=== PATIENT | female | born 1985 | race Caucasian/White ===

== ENCOUNTER 2017-08-31 08:29 | Emergency (ER) | payer SELFPAY ==
[2017-08-31 08:42] VITALS: BP 138/82
--- NOTE | 2017-08-31 09:29 | UC ---
Respiratory Complaint HPI - HPI Summary HPI Summary: 32 Y/O female with compliant of sore throat, fever, nasal congestion , sinus pain and pressure, and L ear pain x 2 days. Vomiting began this AM. Significant history of type 2 diabetes, blood glucose this AM 135. Patient does not know the name of insulin - states is taking one long acting insulin. Medications and medical history reviewed at this visit. Discussed with pt elevated HTN without history of HTN, states is normally withing recommended range. Elevation most likely due to current illness - History of Current Complaint Chief Complaint: UCRespiratory Stated Complaint: THROAT PAIN Time Seen by Provider: 08/31/17 08:54 Hx Obtained From: Patient Hx Last Menstrual Period: 08/24/17 Onset/Duration: Gradual Onset, Lasting Days Timing: Constant Severity Initially: Mild Severity Currently: Moderate Pain Intensity: 5 Pain Scale Used: 0-10 Numeric Character: Cough: Productive Aggravating Factors: Nothing Alleviating Factors: Nothing Associated Signs And Symptoms: Positive: Fever, Chills Related History: Seasonal Allergies - Risk Factors Pulmonary Embolism Risk Factors: Smoking Cardiac Risk Factors: Diabetes Pseudomonas Risk Factors: Negative Tuberculosis Risk Factors: Diabetes, Smoking - Allergies/Home Medications Allergies/Adverse Reactions: Allergies Allergy/AdvReac Type Severity Reaction Status Date / Time Baclofen Allergy Hives Verified 08/31/17 08:39 Garlic Allergy throat Verified 08/31/17 08:39 swelling Sulfamethoxazole Allergy Hives Verified 08/31/17 08:39 w/Trimethoprim [From Bactrim] Home Medications: Home Medications Topiramate [Trokendi Xr] 100 mg PO DAILY 08/31/17 [History Confirmed 08/31/17] Venlafaxine ER (NF) [Effexor ER (NF)] 150 mg PO DAILY 08/31/17 [History Confirmed 08/31/17] Venlafaxine EXT RELEASE CAP* [Effexor Xr CAP*] 75 mg PO DAILY 08/31/17 [History Confirmed 08/31/17] PMH/Surg Hx/FS Hx/Imm Hx Previously Healthy: Yes Endocrine History: Diabetes - Type 2 - Surgical History Surgical History: Yes Surgery Procedure, Year, and Place: TONSILECTOMY - 1987. FATTY LIPOMAS REMOVED - 2010. ABSCESS REMOVED( TUNNELED AREAS) BACK OF NECK. D &C - Family History Known Family History: Positive: Other - noncontributory - Social History Occupation: Employed Full-time Alcohol Use: Rare Substance Use Type: None Smoking Status (MU): Light Every Day Tobacco Smoker Amount Used/How Often: 1/4 to 102 ppd Household Exposure Type: Cigarettes Review of Systems Constitutional: Fever, Chills Skin: Negative Eyes: Negative ENT: Sore Throat, Ear Ache, Sinus Congestion Respiratory: Cough Cardiovascular: Negative Gastrointestinal: Vomiting Genitourinary: Negative Motor: Negative Neurovascular: Negative Musculoskeletal: Negative Neurological: Negative Psychological: Negative Is Patient Immunocompromised?: No All Other Systems Reviewed And Are Negative: Yes Physical Exam Triage Information Reviewed: Yes Appearance: Ill-Appearing - Actively vomiting Vital Signs: Initial Vital Signs Temp 98 F 08/31/17 08:39 Pulse 112 08/31/17 08:39 Resp 18 08/31/17 08:39 BP 138/82 08/31/17 08:39 Pulse Ox 100 08/31/17 08:39 Vital Signs Reviewed: Yes Eye Exam: Normal ENT Exam: Other ENT: Positive: TM red - Left side Neck exam: Normal Neck: Positive: Supple, Nontender Respiratory Exam: Normal Respiratory: Positive: Lungs clear Cardiovascular Exam: Normal Cardiovascular: Positive: RRR Abdominal Exam: Normal Abdomen Description: Positive: Nontender Bowel Sounds: Positive: Present Musculoskeletal Exam: Normal Musculoskeletal: Positive: Strength Intact Neurological Exam: Normal Neurological: Positive: Alert Psychological Exam: Normal Skin Exam: Normal UC Diagnostic Evaluation - Laboratory O2 Sat by Pulse Oximetry: 100 Respiratory Course/Dx - Differential Dx/Diagnosis Differential Diagnosis/HQI/PQRI: Influenza, Lower Resp Infection, Sinusitis, Other - Ear infection Provider Diagnoses: Ear infection / Sinus infection Discharge - Discharge Plan Condition: Stable Disposition: HOME Patient Education Materials: Sinusitis (ED), Otitis Media (ED) Additional Instructions: Please take antibiotics as directed. Your flu and strep tests were negative. Keep your follow up appointment with your primary medical provider. You may return to Urgent Care as needed for worsening symptoms.
[2017-08-31] MEDS ORDERED: Ondansetron ODT TAB* 4 MG PO ONE (09:38)
== END 2017-08-31 10:05 | disposition home or self-care (01) ==
LOC: UCEAST 08:29
DX: H66.90 Otitis media, unspecified, unspecified ear (principal); Z88.2 Allergy status to sulfonamides; F17.210 Nicotine dependence, cigarettes, uncomplicated; J32.9 Chronic sinusitis, unspecified
CPT/HCPCS: 87502; 87651; A9270-GY

== ENCOUNTER 2017-12-22 16:25 | Emergency (ER) | payer MEDICAID, OTHER ==
--- OUTSIDE RECORDS SUMMARY | 2017-12-22 16:45 | XMS REPORT ---
:1985 External Reference #:[id number] Author Organization [facility] Address [address] [address] Phone [phone] Care Team Providers Name Role Phone Jesi Paul NP Primary Care Physician Unavailable Payers Type Date Identification Numbers Payment Provider Subscriber Medicaid Policy Number: [id number] Medicaid Vy [employer]urg[employer] Name: 1 1 [address] PayID: [id number] [place] [address] Workers Compensation Onset: 2013 Policy Number: State Insurance yV Farrar [id number] [employer]ade [place]: [place] [address] [address] [place] [address] Problems Date Description Provider Status Onset: 09/14/2015 Lumbar spondylosis Valentin Peña M.D. 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 Active Family History Date Family Member(s) Problem(s) Comments General No Current Problems Social History Type Date Description Comments Occupation Unemployed Occupation Fulltime student ETOH Use Rarely consumes alcohol Smoking Patient is a current smoker, smokes every day Recreational Drug Use Denies Drug Use Smoking Light tobacco smoker (10 or fewer cigarettes/day) Allergies, Adverse Reactions, Alerts Date Description Reaction Status Severity Comments 09/14/2015 Bactrim Urticaria active Medications Medication Date Status Form Strength Qnty SIG Indications Ordering Provider Fluconazole 12/11/ Active Tablets 150mg 14tab 1 by K13.21 Oscar 2018 s mouth Ruparelia, every M.D. day Dicyclomine HCL / Active Tablets 20mg take 1 Unknown 0000 tablet by mouth four times a day Doxycycline / Active Tablets 100mg take 1 Unknown Hyclate 0000 tablet twice a day Levothyroxine / Active Tablets 50mcg 1 by Unknown Sodium 0000 mouth every day Metformin HCL / Active Tablets 1000mg 1 by Unknown 0000 mouth twice a day Simvastatin / Active Tablets 20mg take 1 Unknown 0000 tablet at bedtime Alprazolam / Active Tablets 0.5mg take 1 Unknown 0000 tablet twice a day if needed Gabapentin / Active Capsules 300mg take 1 Unknown 0000 capsule three times a day Temazepam / Active Capsules 30mg take 1 Unknown 0000 capsule at bedtime if needed Sertraline HCL / Active Tablets 50mg 1 by Unknown 0000 mouth every day Cyclobenzaprine / Active Tablets 5mg take 1 Unknown HCL 0000 tablet three times a day as Needed Oxycodone-Acetami / Active Tablets 5-325mg take 1 Unknown nophen 0000 tablet every 6 hours as Needed Trokendi XR / Active Caps ER 100mg Unknown 0000 24HR Venlafaxine HCL / Active Tablets ER 150mg 1 by Unknown ER 0000 24HR mouth every day Levocetirizine / Active Tablets 5mg 1 by Unknown Dihydrochloride 0000 mouth every day [place] 02/12/ Hx Tablets 5-325mg 40tab 1-2 po Patricia 2012 q4-6 hr Bhatti, 09/14/ prn pain M.D. 2014 Flexeril 02/12/ Hx Tablets 5mg 20tab 1 po bid Patricia 2012 prn Bhatti, 09/14/ M.D. 2014 Percocet 02/09/ Hx Tablets 5-325mg 40tab 1-2 po Patricia 2012 q4-6h Bhatti, 09/14/ prn pain M.D. 2014 Prozac 00// Hx Unknown 2014 Metformin HCL / Hx Unknown - 2014 Synthroid / Hx Unknown 2014 Ambien / Hx Unknown - 2014 Xanax / Hx Unknown - 2014 Glipizide ER / Hx Tablets ER 10mg take 1 Unknown 0000 - 24HR tablet 2018 daily Depo-Provera / Hx Suspension 150mg/ml every 3 Unknown 0000 - months 2017 Vital Signs Date Vital Result Comment 12/11/2017 Height 65 inches 5'5" Weight 307.00 lb Heart Rate 88 /min BP Systolic Recheck 128 mmHg BP Diastolic Recheck 80 mmHg Respiratory Rate 16 /min Body Temperature 99.0 F BMI (Body Mass Index) 51.1 kg/m2 10/21/2015 Height 65 inches 5'5" Weight 335.00 lb Heart Rate 78 /min BP Systolic Sitting 118 mmHg BP Diastolic Sitting 84 mmHg Pain Level 6 back/knees/neck BMI (Body Mass Index) 55.7 kg/m2 09/14/2015 Height 65 inches 5'5" Weight 335.00 lb Heart Rate 82 /min BP Systolic Sitting 148 mmHg BP Diastolic Sitting 90 mmHg Pain Level 4 back BMI (Body Mass Index) 55.7 kg/m2 Results Description No Information Procedures Date CPT Code Description Status 01/29/2013 97263 Rad Shoulder Comp, Min. 2 Views Completed 01/29/2013 92801 Rad Shoulder Comp, Min. 2 Views Completed Encounters Type Date Location Provider CPT E/M Dx Office Visit 12/11/2017 2:15p [facility], [address] K12.39 At [facility] K13.21 Office Visit 10/21/2015 11:00a [facility] Valentin Peña [address]0976 M47.816 Of [facility] M47.812 Office Visit 09/14/2015 2:00p [facility] Valentin Peña 59965 M47.816 Of [facility] M47.812 Office Visit 03/19/2013 1:15p [facility] Bhatti 24352 847.0 C.MAdarsh [facility]ks Office Visit 03/05/2013 9:45a [facility] Bhatti 10548 847.0 C.MJameyA. M.D. Office Visit 02/12/2013 9:00a [facility] Bhatti, 95712 847.0 C.M.A. MAbelardo. Office Visit 01/29/2013 1:30p [facility] Bhatti, 94037 847.0 C.M.A. MCorine 847.0 Plan of Care 12/11/2017 - Oscar Hinojosa M.D.K12.39 Other oral mucositis (ulcerative) K13.21 Leukoplakia of oral mucosa, including tongueNew Medication:Fluconazole 150 mgNew Labs:Wound Culture/SensiComments:I have done some culture swabs my clinical suspicion is a fungal mucositis. I'm going to start her on some Diflucan 150 once a day for 14 days of advised her to get her blood sugars under better control. Recheck back after one week pending results of the culture
--- OUTSIDE RECORDS SUMMARY | 2017-12-22 16:45 | XMS REPORT ---
:1985 External Reference #:[id number] Author Organization [employer] Address [address] [address] Phone [phone] Care Team Providers Name Role Phone Jesi Paul NP Primary Care Physician Unavailable Payers Type Date Identification Numbers Payment Provider Subscriber Medicaid Policy Number: [id number] Medicaid [employer] Name: 1 1 [address] PayID: [id number] [place] [address] Workers Compensation Onset: 2013 Policy Number: State Insurance Vy Farrar [id number] [employer] [place] [address] [address] [place] [address] Problems Date Description Provider Status Onset: 09/14/2015 [...] by Unknown Dihydrochloride 0000 mouth every day [place] 02/12/ Hx Tablets 5-325mg 40tab 1-2 po [...] 2017 Vital Signs Date Vital Result Comment 12/18/2017 Height 65 inches 5'5" Weight 307.00 lb Heart Rate 80 /min BP Systolic Recheck 130 mmHg BP Diastolic Recheck 84 mmHg Respiratory Rate 16 /min Body Temperature 97.7 F BMI (Body Mass Index) 51.1 kg/m2 12/11/2017 Height 65 inches 5'5" Weight 307.00 [...] Procedures Date CPT Code Description Status 01/29/2013 97019 Rad Shoulder Comp, Min. 2 Views Completed 01/29/2013 69918 Rad Shoulder Comp, Min. 2 Views Completed Encounters Type Date Location Provider CPT E/M Dx Office Visit 12/11/2017 2:15p [facility], [address] K12.39 At [facility] K13.21 Office Visit 10/21/2015 11:00a [facility] Valentin Peña [address] M47.816 Of [facility] M47.812 Office Visit 09/14/2015 2:00p [facility] Valentin Peña, 58348 M47.816 Of [facility] M47.812 Office Visit 03/19/2013 1:15p [facility] Bhatti 48469 847.0 C.M.A. M.D. Office Visit 03/05/2013 9:45a [facility] hBatti, 10551 847.0 C.M.A. M.D. Office Visit 02/12/2013 9:00a [facility] Bhatti, 41990 847.0 C.M.A. M.D. Office Visit 01/29/2013 1:30p [facility] Bhatti, 08010 847.0 C.M.A. M.Ruperto 847.0 Plan of Care 12/18/2017 - Oscar Hinojosa M.D.K12.39 Other oral mucositis (ulcerative) K13.21 Leukoplakia of oral mucosa, including tongueComments:Clinically her symptoms have improved significantly there is no evidence of any fungal elements on examination. I suggest she continue and complete her oral antifungal. I think she needs close monitoring for her blood sugars. I suggest recheck back when necessary.
[2017-12-22 18:12] LABS: ABS Basophils 0.1 10^3/ul (0-0.2); ABS Eosinophils 0.1 10^3/ul (0-0.6); ABS Lymphocytes 2.3 10^3/ul (1.0-4.8); ABS Monocytes 0.5 10^3/ul (0-0.8); ABS Neutrophils 4.8 10^3/ul (1.5-7.7); ABS Nucleated RBC 0 10^3/ul; Eosinophil % 1.3 % (0-6); Hematocrit 45 % (35-47); Hemoglobin 15.2 g/dl (12.0-16.0); Lymphocyte % 29.5 % (25-47); Mean Corpuscular HGB Conc 34 g/dl (31-36); Mean Corpuscular Hemoglobin 31 pg (27-31); Mean Corpuscular Volume 91 fL (80-97); Mean Platelet Volume 11 um3 (7.4-10.4); Nucleated Red Blood Cells % 0.1; Platelet Count 106 10^3/ul (150-450); Red Blood Count 4.91 10^6/ul (4.0-5.4); Red Cell Distribution Width 13 % (10.5-15); White Blood Count 7.8 10^3/ul (3.5-10.8)
[2017-12-22 18:25] LABS: EGFR Non-African American 112.3 (>60)
[2017-12-22 19:32] LABS: Urine Appearance Cloudy; Urine Blood 3+ (Negative); Urine Color Red; Urine Ketones Negative (Negative); Urine Protein 2+(100 mg/dL) (Negative); Urine Specific Gravity 1.014 (1.010-1.030); Urine Urobilinogen Positive (Negative)
[2017-12-22 23:33] VITALS: BP 125/72
--- NOTE | 2017-12-23 09:32 | ED ---
Cami William Julia, scribed for Familia Pretty MD on 12/22/17 at 1714 . Complex/Multi-Sys Presentation - HPI Summary HPI Summary: This patient is a 32 year old F presenting to [facility] with a chief complaint of lightening hematuria since this morning. Patient denies pain or burning with urination . Patient has history of stage 3 kidney disease and type II diabetes. Patient is seen by [facility] SET UP OPERATOR Jesi Paul. - History Of Current Complaint Chief Complaint: EDUrogenitalProblems Time Seen by Provider: 12/22/17 17:08 Hx Obtained From: Patient Onset/Duration: Lasting Hours Timing: Constant Severity Currently: Mild Severity Initially: Moderate Location: Negative Related History: Other - Kidney disease and type II DM - Allergies/Home Medications Allergies/Adverse Reactions: Allergies Allergy/AdvReac Type Severity Reaction Status Date / Time amoxicillin Allergy See Comment Verified 12/22/17 17:16 MS Baclofen [Baclofen] Allergy Hives Verified 12/22/17 16:34 MS Garlic [Garlic] Allergy throat Verified 12/22/17 16:34 swelling MS Sulfamethoxazole Allergy Hives Verified 12/22/17 16:34 w/Trimethoprim [From Bactrim] PMH/Surg Hx/FS Hx/Imm Hx Endocrine/Hematology History: Reports: Hx Diabetes, Hx Thyroid Disease Cardiovascular History: Denies: Hx Congestive Heart Failure, Hx Hypertension, Hx Pacemaker/ICD History: Reports: Hx Renal Disease Psychiatric History: Denies: Hx Panic Disorder - Cancer History Cancer Type, Location and Year: stage 3 kidney disease,ovarian syndrome Hx Chemotherapy: No Hx Radiation Therapy: No - Surgical History Surgery Procedure, Year, and Place: TONSILECTOMY - 1987. FATTY LIPOMAS REMOVED - 2010. ABSCESS REMOVED( TUNNELED AREAS) BACK OF NECK. D &C Infectious Disease History: No Infectious Disease History: Denies: Hx Clostridium Difficile, Hx Hepatitis, Hx Human Immunodeficiency Virus (HIV), Hx of Known/Suspected MRSA, Hx Shingles, Hx Tuberculosis, Hx Known/ Suspected VRE, Hx Known/Suspected VRSA, History Other Infectious Disease, Traveled Outside the [place] in Last 30 Days - Family History Known Family History: Positive: Cardiac Disease, Diabetes, Other - CA breast cervical - Social History Alcohol Use: Rare Substance Use Type: Reports: None Smoking Status (MU): Light Every Day Tobacco Smoker Amount Used/How Often: 1/4 to 102 ppd Review of Systems Negative: Fever Positive: hematuria. Negative: dysuria, pain All Other Systems Reviewed And Are Negative: Yes Physical Exam - Summary Physical Exam Summary: Appearance: The patient is well-nourished in no acute distress and in no acute pain. Patient is morbidly obese Skin: The skin is warm and dry and skin color reflects adequate perfusion. HEENT: The head is normocephalic and atraumatic. Neck: the neck is supple with full range of motion and non-tender. There are no carotid bruits. There is no neck vein distension. Respiratory: Chest is non-tender. Lungs are clear to auscultation and breath sounds are symmetrical and equal. Cardiovascular: Heart is regular rate and rhythm. There is no murmur or rub auscultated. There is no peripheral edema and pulses are symmetrical and equal. Abdomen: The abdomen is soft and non-tender. There are normal bowel sounds heard in all four quadrants and there is no organomegaly palpated. Musculoskeletal: There is no back tenderness noted. Extremities are non-tender with full range of motion. There is good capillary refill. There is no peripheral edema or calf tenderness elicited. Neurological: Patient is alert and oriented to person, place and time. The patient has symmetrical motor strength in all four extremities. Cranial nerves are grossly intact. Deep tendon reflexes are symmetrical and equal in all four extremities. Psychiatric: The patient has an appropriate affect and does not exhibit any anxiety or depression. Triage Information Reviewed: Yes Vital Signs On Initial Exam: Initial Vitals Temp Pulse Resp BP Pulse Ox 97.7 F 102 20 142/89 96 12/22/17 16:28 12/22/17 16:28 12/22/17 16:28 12/22/17 16:28 12/22/17 16:28 Vital Signs Reviewed: Yes Diagnostics - Vital Signs Vital Signs Temp Pulse Resp BP Pulse Ox 12/22/17 16:28 97.7 F 102 20 142/89 96 - Laboratory Lab Results: Lab Results 12/22/17 12/22/17 12/22/17 Range/Units 17:58 17:58 18:30 WBC 7.8 (3.5-10.8) 10^3/ul RBC 4.91 (4.0-5.4) 10^6/ul Hgb 15.2 (12.0-16.0) g/dl Hct 45 (35-47) % MCV 91 (80-97) fL MCH 31 (27-31) pg MCHC 34 (31-36) g/dl RDW 13 (10.5-15) % Plt Count 106 L (150-450) 10^3/ul MPV 11 H (7.4-10.4) um3 Neut % (Auto) 61.3 (38-83) % Lymph % (Auto) 29.5 (25-47) % Sampson % (Auto) 6.8 (1-9) % Eos % (Auto) 1.3 (0-6) % Baso % (Auto) 1.1 (0-2) % Absolute Neuts (auto) 4.8 (1.5-7.7) 10^3/ul Absolute Lymphs (auto) 2.3 (1.0-4.8) 10^3/ul Absolute Monos (auto) 0.5 (0-0.8) 10^3/ul Absolute Eos (auto) 0.1 (0-0.6) 10^3/ul Absolute Basos (auto) 0.1 (0-0.2) 10^3/ul Absolute Nucleated RBC 0 10^3/ul Nucleated RBC % 0.1 Sodium 133 (133-145) mmol/L Potassium 3.5 (3.5-5.0) mmol/L Chloride 103 (101-111) mmol/L Carbon Dioxide 23 (22-32) mmol/L Anion Gap 7 (2-11) mmol/L BUN 8 (6-24) mg/dL Creatinine 0.61 (0.51-0.95) mg/dL Est GFR ( Amer) 144.4 (>60) Est GFR (Non-Af Amer) 112.3 (>60) BUN/Creatinine Ratio 13.1 (8-20) Glucose 281 H (70-100) mg/dL Calcium 9.1 (8.6-10.3) mg/dL Total Bilirubin 0.50 (0.2-1.0) mg/dL AST 40 H (13-39) U/L ALT 38 (7-52) U/L Alkaline Phosphatase 85 (34-104) U/L C-Reactive Protein 10.25 H (< 5.00) mg/L Total Protein 7.1 (6.4-8.9) g/dL Albumin 3.6 (3.2-5.2) g/dL Globulin 3.5 (2-4) g/dL Albumin/Globulin Ratio 1.0 (1-3) Urine Color Red A Urine Appearance Cloudy Urine pH 7.0 (5-9) Ur Specific [place] 1.014 (1.010-1.030) Urine Protein 2+(100 mg/dl) H (Negative) Urine Ketones Negative (Negative) Urine Blood 3+ H (Negative) Urine Nitrate Negative (Negative) Urine Bilirubin Negative (Negative) Urine Urobilinogen Positive H (Negative) Ur Leukocyte Esterase Negative (Negative) Urine WBC (Auto) Absent (Absent) Urine RBC (Auto) 3+(>10/hpf) H (Absent) Ur Squamous Epith Cells Present H (Absent) Amorphous Crystals Present H (Absent) Urine Bacteria Absent (Absent) Urine Glucose 2+(150 mg/dl) H (Negative) Urine Ascorbic Acid Not Reportable Result Diagrams: 12/22/17 17:58 12/22/17 17:58 Lab Statement: Any lab studies that have been ordered have been reviewed, and results considered in the medical decision making process. Complex Multi-Symp Course/Dx Course Of Treatment: Ms. Murguia presented concerned because she has gross hematuria although she has had it in the past and her BS's have been running high. She was found to have gross hematuria without infection and mild hyperglycemia. There was nothing to do urgently so I recommended F/U in the next few days with her PMD. - Diagnoses Provider Diagnoses: Hematuria, Hyperglycemia Discharge - Discharge Plan Condition: Stable Disposition: HOME Patient Education Materials: Hematuria (ED) Referrals: Adiel Gomez MD [Primary Care Provider] - Additional Instructions: RETURN TO THE EMERGENCY DEPARTMENT FOR CHANGING OR WORSENING SYMPTOMS. The documentation as recorded by the Cami mars Julia accurately reflects the service I personally performed and the decisions made by me, Familia Pretty MD.
== END 2017-12-22 22:44 | disposition home or self-care (01) ==
LOC: ED 16:25
DX: R31.0 Gross hematuria (principal); E11.65 Type 2 diabetes mellitus with hyperglycemia; F17.210 Nicotine dependence, cigarettes, uncomplicated; E11.22 Type 2 diabetes mellitus with diabetic chronic kidney disease; N18.3 Chronic kidney disease, stage 3 (moderate)
CPT/HCPCS: 36415; 80053; 81003; 81015; 85025; 86140; 99282

== ENCOUNTER 2018-04-25 15:06 | Emergency (ER) | payer OTHER ==
[2018-04-25 15:18] VITALS: BP 118/80
[2018-04-25] MEDS ORDERED: Nitrofurantoin Macrocrystals* 50 MG CAP PO ONE (16:01)
--- NOTE | 2018-04-25 16:12 | UC ---
Complaint Female HPI - HPI Summary HPI Summary: Patient states she has a history of kidney stones on left side. She had stent placed initially on March 25, and removed/exchanged on April 15. For several days has had some discomfort on left flank and had f/u with urologist. She states she started passing stones again for 2 days and has pain and dysuria. Had nausea /vomiting yesterday and took Zofran today at noon, after which she has been able to tolerate fluids. She denies chills, fever and has continued taking her flomax and oxycodone. PMH of DM, states FS this morning was 330mg% - History Of Current Complaint Chief Complaint: UCHeadache Stated Complaint: HEADACHE AND KIDNEY STONES Time Seen by Provider: 04/25/18 15:26 Hx Obtained From: Patient Hx Last Menstrual Period: 08/24/17 ?: No Onset/Duration: Sudden Onset, Lasting Days Timing: Intermittent Severity Initially: Mild Severity Currently: Moderate Pain Intensity: 8 Character: Dull Aggravating Factor(s): Movement, Urination Associated Signs And Symptoms: Positive: Nausea, Vomiting(# Of Episodes =) - Risk Factors Ectopic Risk Factor: Negative Ovarian Torsion Risk Factor: Negative - Allergies/Home Medications Allergies/Adverse Reactions: Allergies Allergy/AdvReac Type Severity Reaction Status Date / Time amoxicillin Allergy See Comment Verified 04/25/18 15:18 baclofen Allergy Hives Verified 04/25/18 15:18 garlic Allergy Hives Verified 04/25/18 15:18 sulfamethoxazole Allergy Hives Verified 04/25/18 15:18 [From Bactrim] trimethoprim [From Bactrim] Allergy Hives Verified 04/25/18 15:18 Home Medications: Home Medications Atorvastatin* [Lipitor*] 40 mg PO 1700 04/25/18 [History Confirmed 04/25/18] PMH/Surg Hx/FS Hx/Imm Hx - Surgical History Surgical History: Yes Surgery Procedure, Year, and Place: TONSILECTOMY - 1987. FATTY LIPOMAS REMOVED - 2010. ABSCESS REMOVED( TUNNELED AREAS) BACK OF NECK. D &C. kidney stents - Family History Known Family History: Positive: Cardiac Disease, Diabetes, Other - [place] breast cervical - Social History Alcohol Use: None Substance Use Type: None Smoking Status (MU): Light Every Day Tobacco Smoker Amount Used/How Often: 1/4 to 102 ppd Household Exposure Type: Cigarettes Review of Systems Gastrointestinal: Vomiting, Nausea All Other Systems Reviewed And Are Negative: Yes Physical Exam Triage Information Reviewed: Yes Appearance: Well-Appearing, No Pain Distress, Obese Vital Signs: Initial Vital Signs Temp 98.7 F 04/25/18 15:13 Pulse 106 04/25/18 15:13 Resp 18 04/25/18 15:13 BP 118/80 04/25/18 15:13 Pulse Ox 97 04/25/18 15:13 Vital Signs Reviewed: Yes Eyes: Positive: Conjunctiva Clear ENT: Positive: Hearing grossly normal, Pharynx normal, Other - mucosa well hydrated Neck exam: Normal Neck: Positive: Supple, Nontender, No Lymphadenopathy Respiratory: Positive: Chest non-tender, Lungs clear, Normal breath sounds, No respiratory distress Cardiovascular: Positive: RRR, No Murmur, Pulses Normal, Brisk Capillary Refill Abdomen Description: Positive: Nontender, No Organomegaly, Soft, Other: - no CVA tenderness Bowel Sounds: Positive: Present Skin Exam: Normal Complaint Female Dx - Course Course Of Treatment: start macrobid as prescribed, continue oral hydration, zofran, oxycodone, and flomax as prescribed, awaiting for urine culture results , follow up with urology in 1 week - Differential Dx/Diagnosis Provider Diagnoses: urolithiasis Discharge - Sign-Out/Discharge Documenting (check all that apply): Discharge/Admit/Transfer - Discharge Plan Condition: Good Disposition: HOME Prescriptions: Nitrofurantoin Monohyd/M-Cryst [Macrobid 100 mg Capsule] 100 mg PO BID #14 cap Patient Education Materials: Kidney Stones (ED), Nitrofurantoin Macrocrystals ( By mouth) Referrals: George Valdes MD [Primary Care Provider] - - Billing Disposition and Condition Condition: GOOD Disposition: Home
== END 2018-04-25 16:20 | disposition home or self-care (01) ==
LOC: UCEAST 15:06
DX: N20.9 Urinary calculus, unspecified (principal); Z87.442 Personal history of urinary calculi; R11.2 Nausea with vomiting, unspecified; Z88.0 Allergy status to penicillin; Z88.2 Allergy status to sulfonamides; Z82.49 Family history of ischemic heart disease and other diseases of the circulatory system; Z83.3 Family history of diabetes mellitus; Z80.3 Family history of malignant neoplasm of breast; Z80.49 Family history of malignant neoplasm of other genital organs; F17.210 Nicotine dependence, cigarettes, uncomplicated
CPT/HCPCS: 81003; 87086; 99212; A9270-GY; G0463

== ENCOUNTER 2019-08-03 23:52 | Emergency (ER) | payer OTHER ==
--- OUTSIDE RECORDS SUMMARY | 2019-08-04 00:02 | XMS REPORT | Summary of Care ---
:1985 Author Organization [facility] Address [address] [address] Care Team Providers Name Role Phone George Valdes MD Primary Care Provider Reason for Referral Diagnostic Testing (Routine) Status Reason Specialty Diagnoses / Referred By Referred To Procedures Contact Contact Pending Review Diagnoses Localized edema George Valdes MD Procedures ECHOCARDIOGRAM TTE [address] [place] [address] Reason for Visit Reason Comments Edema f/u edmea in hands, feet, lower legs, seen Ms Ervin on 07/13/19, given HCTZ 25mg qd, edema is better Lab Work Only done 07/13/19 per [facility] states her counselor (Julisa) cancelled her appt for today (would of been the 2nd visit and needs three visits before she can be scheduled with manager urology at [facility]), next OV wih Julisa is 07/30/19 but Pt will call for an earlier OV Headache discuss HAs (behind eyes) since , took zofran last night for nausea Encounter Details Date Type Department Care Team Description 07/16/2019 Office Visit [place] [facility] George Valdes MD Localized edema (Primary Dx); Medicine [address] [facility] Type 2 diabetes mellitus with diabetic polyneuropathy, with long-term current use of insulin (HCC); [address] [place] [address] Portal hypertensive gastropathy (HCC); [place] [address] Depression, unspecified depression type; [phone] Anxiety state; Calculus of kidney Allergies Active Allergy Reactions Severity Noted Date Comments Aspirin GI Reaction 08/17/2008 GI upset Augmentin GI Reaction 08/17/2008 Nausea Bactrim Hives 02/28/2011 Cefuroxime Hives High 12/04/2010 Garlic Other 07/10/2012 Throat swelling Ortho Tri-Cyclen, Other 07/08/2012 Emotional and angry Tylenol Other Medium 03/25/2018 Liver problems documented as of this encounter (statuses as of 07/20/2019) Medications Medication Sig Dispensed Refills Start End Status Date Date diphenhydrAMINE Take 75 mg by 0 Active (BENADRYL) 25 MG Oral mouth EVERY TabIndications: allergy SIX HOURS NEEDED. Honor & Syringes Does by Does not 100 Each 3 02/13/20 Active not apply Misc apply route. 16 Blood Glucose Monitor 1 Device by 1 Device 0 03/19/20 Active Software Does not apply Does not apply 18 Device route TWICE DAILY. Brand: clickTRUE, Dx: E11.65 hydroxychloroquine Take 400 mg by 0 Active (PLAQUENIL) 200 MG Oral mouth DAILY. Tab metFORMIN HCL 1000 MG Take 1 Tab by 60 Tab 5 12/04/19 Active Oral TabIndications: mouth TWICE 19 Type 2 diabetes DAILY. mellitus with diabetic mononeuropathy, with long-term current use of insulin (HCC) morphine 15 MG Oral Tab Take 7.5 mg by 0 Active mouth THREE TIMES DAILY. Tizanidine 2 MG Oral Take 2 mg by 0 Active Tab mouth THREE TIMES DAILY. atorvastatin (LIPITOR) Take 1 Tab by 30 Tab 11 02/27/20 Active 80 MG Oral Tab mouth DAILY. 19 gabapentin (NEURONTIN) 400 mg THREE 0 04/01/20 Active 400 MG Oral Cap TIMES DAILY. 19 OXYcodone (OXYDOSE, TAKE 1/4 0 04/01/20 Active OXYFAST, ROXICODONE) MILLILITER 19 100 MG/5ML Oral Conc UNDER TONGUE EVERY 6 TO 8 HOURS DIRECTED, MAXIMUM OF 1 MILLILITER DAILY nicotine (NICORETTE) 2 Place 1 Each 100 Each 5 04/15/20 Active MG Mouth/Throat Gum between lower 19 cheek and gum NEEDED (Tobacco cessation). MDD 20 pieces Glucose Blood 1 Strip by In 100 Strip 1 05/11/20 Active (FREESTYLE LITE) In Vitro route 19 Vitro StripIndications: THREE TIMES Type 2 diabetes DAILY. Dx: mellitus with diabetic E11.65 mononeuropathy, with long-term current use of insulin ([facility]) Lancets Does not apply 1 Units by 100 Each 1 05/11/20 Active MiscIndications: Type 2 Does not apply 19 diabetes mellitus with route THREE diabetic TIMES DAILY. mononeuropathy, with Dx: E11.65, long-term current use Brand:Free-sty of insulin ([facility]) le ondansetron (ZOFRAN) 4 Take 4 mg by 20 Tab 3 05/11/20 Active MG Oral TabIndications: mouth EVERY 19 Gastroesophageal reflux EIGHT HOURS disease, esophagitis NEEDED (nausea presence not specified / vomitting). Zinc 100 MG Oral Tab Take 1 Tab by 30 Tab 11 05/19/20 Active mouth DAILY. 19 loratadine Take 10 mg by 0 Active (CLARITIN,ALAVERT) 10 mouth DAILY. MG Oral Tab ergocalciferol Take 1 Cap by 8 Cap 0 06/10/20 Active (DRISDOL, CALCIFEROL, mouth EVERY 7 19 VITAMIN D) 84271 units DAYS. Oral CapIndications: Vitamin D deficiency Cholecalciferol Take 2,000 180 Cap 3 06/10/20 Active (VITAMIN D-3) 1000 Units by mouth 19 units Oral Cap DAILY. venlafaxine (EFFEXOR Take 2 Caps by 42 Cap 0 07/09/20 Active XR) 150 MG Oral CAPSULE mouth DAILY. 19 SR 24 HR Insulin Pen Needle 32G Inject 1 Each 100 Each 3 07/09/20 Active X 6 MM Does not apply beneath the 19 Misc skin DAILY. Diabetes Mellitus Injects once daily. hydrochlorothiazide Take 1 Cap by 30 Cap 0 07/14/20 Active (HCTZ, ORETIC) 12.5 MG mouth DAILY. 19 Oral Cap Insulin Glargine 100 Inject 44 0 07/16/20 Active UNIT/ML Subcutaneous Units beneath 19 Solution Pen-injector the skin EVERY EVENING. furosemide (LASIX) 40 Take 1 Tab by 30 Tab 5 07/16/20 Active MG Oral Tab mouth DAILY. 19 Azithromycin 500 MG Take 1 Tab by 7 Tab 0 07/16/20 Active Oral Tab mouth DAILY. 19 Insulin Glargine 100 Inject 40 6 mL 5 06/10/20 Discontinued UNIT/ML Subcutaneous Units beneath 019 (Reorder) Solution Pen-injector the skin EVERY EVENING. LORazepam (ATIVAN) 2 MG Take 1 Tab by 30 Tab 0 06/16/20 Discontinued Oral Tab mouth EVERY 19 019 (Reorder) BEDTIME. Max Daily Amount: 2 mg. LORazepam (ATIVAN) 0.5 Take 1 Tab by 50 Tab 0 06/16/20 Discontinued MG Oral Tab mouth EVERY 019 (Reorder) FOUR HOURS NEEDED (anxiety). Max Daily Amount: 3 mg. documented as of this encounter (statuses as of 07/20/2019) Active Problems Problem Noted Date Gastroparesis 05/19/2019 Portal hypertensive gastropathy 01/04/2019 Thrombocytopenia 12/04/2018 Type 2 diabetes mellitus with diabetic mononeuropathy, with long-term 2017 current use of insulin Liver cirrhosis secondary to AREVALO 03/19/2018 Calculus of kidney 02/17/2018 Overview: Added automatically from request for surgery [id number] Arthralgia of right knee 10/07/2017 Chronic migraine 07/10/2017 Tobacco abuse 09/25/2015 Vertigo 09/22/2015 Leukocytosis 09/20/2015 ESR raised 09/20/2015 Creatinine elevation 09/20/2015 Right-sided tinnitus 09/16/2015 Spondylosis of lumbar region without myelopathy or radiculopathy 09/05/2015 BMI 50.0-59.9, adult 08/18/2015 TMJ (temporomandibular joint syndrome) 08/16/2015 Lumbar spinal stenosis 08/16/2015 Lumbar disc herniation 08/16/2015 Type 2 diabetes mellitus without complication 08/09/2015 Dysfunction of eustachian tube 08/09/2015 Allergic rhinitis due to allergen 08/09/2015 Diabetes mellitus without complication 08/09/2015 Pain in joint, pelvic region and thigh 07/21/2015 Hyperglycemia 07/21/2015 Absence of bladder continence 07/21/2015 Tobacco use disorder 02/03/2014 Obesity 02/03/2014 PCOS (polycystic ovarian syndrome) 02/03/2014 Hidradenitis 01/13/2014 Sciatica of right side 08/18/2013 Lower back injury 08/18/2013 Cervical adenitis 07/08/2013 Skin infection 07/08/2013 Abscess of neck 02/04/2013 EXCESSIVE MENSTRUATION 07/14/2012 Abscess of axilla 07/09/2012 ABDOMINAL PAIN OTHER SPEC SITE 05/29/2012 Hirsutism 09/04/2011 Subclinical hypothyroidism 09/04/2011 Family history of diabetes mellitus 05/03/2011 Abnormal EKG 03/02/2011 Overview: Poor R wave progression Due to obesity ECHO normal 2010 Pilonidal cyst 02/14/2011 Polycythemia 11/02/2010 Overview: HGB 16 x2 recheck in JANUARY 2010 GERD (gastroesophageal reflux disease) 11/02/2010 Lipoma 11/02/2010 Smoker 09/04/2010 Snores 09/04/2010 Insomnia 09/04/2010 Polycystic disease, ovaries 09/04/2010 Mixed hyperlipidemia 09/04/2010 S/P tonsillectomy 09/04/2010 Overview: 1987 Morbid obesity 09/04/2010 History of Depression 08/17/2008 documented as of this encounter (statuses as of 07/20/2019) Resolved Problems Problem Noted Date Resolved Date History of Morbid Obesity (BMI 40.0 or Higher) 08/17/2008 09/04/2010 Overview: 11/24/2004, BMI: 45.35 documented as of this encounter (statuses as of 07/20/2019) Immunizations Name Administration Dates Next Due DTAP Vaccine 1988, 12/15/1984, 1985, [birth year] Depo Provera (150mg) 01/11/2017, 09/28/2016, 07/02/2016, 10/25/2015 04/09/2016, 10/27/2015, 08/09/2015, 05/24/2015, 03/01/2015, 12/14/2014, 09/29/2014, 06/29/2014, 04/05/2014, 01/18/2014, 10/28/2013, 08/10/2013, 05/22/2013, 12/19/2012 Hepatitis B Vaccine 11/15/1995, 06/14/1995, 05/14/1995 Hepatitis B Vaccine Adult 12/04/2018 Influenza (IM) Preservative Free 07/04/2018 Influenza (IM) W/Pres 10/09/2017, 08/16/2015 MMR VACCINE 04/07/1984 Polio - Inactivated Vaccine 12/15/1984, 02/20/1984, 1985, 1985 Rocephin (1,000 mg) 07/09/2012, 07/08/2012 TDAP Vaccine 02/26/2012 TETANUS & DIPHTHERIA TOXOID (OVER 7 03/17/1998 YRS) documented as of this encounter Social History Tobacco Use Types Packs/Day Years Used Date Current Every Day Smoker Cigarettes 0.25 17 Smokeless Tobacco: Never Used Alcohol Use Drinks/Week oz/Week Comments Yes 1 Shots of liquor 1.0 very rarely Sex Assigned at Date Recorded Not on file Job Start Date Occupation Industry Not on file Not on file Not on file Travel History Travel Start Travel End No recent travel history available. documented as of this encounter Last Filed Vital Signs Vital Sign Reading Time Taken Comments Blood Pressure 112/90 07/16/2019 10:46 AM EDT Pulse 90 07/16/2019 10:46 AM EDT Temperature - - Respiratory Rate - - Oxygen Saturation - - Inhaled Oxygen Concentration - - Weight 155.1 kg (342 lb) 07/16/2019 10:46 AM EDT Height 165.1 cm (5' 5") 07/16/2019 10:46 AM EDT Body Mass Index 56.91 07/16/2019 10:46 AM EDT documented in this encounter Patient Instructions Patient InstructionsGeorge Valdes MD - 07/16/2019 10:40 AM EDTContinue same medicines except make the following changes: 1) increase your insulin to 44 units. 2) stop hydrochlorothiazide and use furosemide 40 mg a day, for leg swelling 3) take antibiotic azithromycin 500 mg a day for 7 days, to treat pain behind the eyes and in the right ear. If it is not helping, we may need to do other tests. Please keep appointment with your counselor so that you can then be referred to psychiatric nurse practitioner who can help with prescribing your psychiatric medicines. Make another appointment with nephrology in [place] [phone], to have your kidney stones evaluated. I will continue to prescribe your lorazepam and venlafaxine until your psychiatric nurse practitioner appointment has occurred Keep appointments for lab work and then with Dr. Valdes, in ically signed by George Valdes MD at 07/16/2019 11:50 AM EDT documented in this encounter Progress Notes George Valdes MD - 07/16/2019 10:40 AM EDT PATIENT: Vy Murguia : 1985 DATE OF SERVICE: 07/16/2019 CHIEF COMPLAINT: Chief Complaint Patient presents with Edema f/u edmea in hands, feet, lower legs, seen Ms Ervin on 07/13/19, given HCTZ 25mg qd, edema is better Lab Work Only done 07/13/19 per Ms Ervin Anxiety discuss ativan, states her counselor (Julisa) cancelled her appt for today ( would of been the 2nd visit and needs three visits before she can be scheduled with manager urology at [facility]), next OV wih Julisa is but Pt will call for an earlier OV Headache discuss HAs (behind eyes) since , took zofran last night for nausea Subjective HISTORY OF PRESENT ILLNESS: Vy Murguia is a 34-y.o. female. HPI She is having multiple issues to discuss. Accompanied by her mother, who is also my patient. The patient has diabetes, with elevated hemoglobin A1c sugars running 180-220. No hypo symptoms. We will increase her insulin from 40 to 44 units daily. She has gained weight, and she admits that she is having psychological issues relating to the following best diet. Switching from mental health clinic to different agency and her counselor Julisa Garrett insisted that she see her 3 times before she would refer her to psychiatric nurse practitioner who can prescribe medicine. The counselor canceled the second of 3 visits. The patient is asking me to prescribe her psychotropics in the interim and I told her I would do so. Told her she should not have stopped the other agency before switching to the new one so she would not have run out of medicine but this isall hindsight now. Complaining of headaches behind her eyes, taking Zofran as needed. She wonders if she has a sinus infection because this is not usual for her. She has not had any fevers chills or sweats but her nasal passages have been intermittently congested and her ears have been hurting. Has chronic pain issues and is on opioids through Dr. Huffman. Urged her to be careful with using psychotropics like Ativan along with the opioids. She states she has not had any difficulty with this. Complaining of worsening edema in her hands feet and lower legs. Given hydrochlorothiazide, which helped a little bit but not enough. She states this edema causes more pain. She asks about why she has this and I told her that it can be from heart disease, kidney disease, liver disease (which she has in the form of cirrhosis from nonalcoholic steatohepatitis), or obesity. I referred her, per her request to a pattern room attendant for evaluation of kidney stones. She failed the appointment. I told her to reschedule it and to be sure she does not miss it. Past Medical History: Diagnosis Date Abnormal EKG 03/02/2011 Calculus of kidney 02/17/2018 Carpal tunnel syndrome on both sides Dr. Carlton Chronic kidney disease Family history of diabetes mellitus 05/03/2011 GERD (gastroesophageal reflux disease) 11/02/2010 Hidradenitis suppurativa Hirsutism 09/04/2011 History of Depression 08/17/2008 History of Morbid Obesity (BMI 40.0 or Higher) 08/17/2008 11/24/2004, BMI: 45.35 Insomnia 09/04/2010 Irregular uterine bleeding Lipoma of unspecified site Left buttock Liver cirrhosis secondary to AREVALO (HCC) 03/19/2018 Mixed hyperlipidemia 09/04/2010 Morbid obesity (HCC) 09/04/2010 Neuropathy Diabetic Neuropathy Nulliparity Obesity Osteoarthritis PCOS (polycystic ovarian syndrome) Dx by Dr Sebastien Green cyst Polycystic disease, ovaries 09/04/2010 Polycythemia 11/02/2010 S/P tonsillectomy 09/04/2010 Sleep apnea Smoker 09/04/2010 Snores 09/04/2010 Spondylosis of lumbar region without myelopathy or radiculopathy 2014 Subclinical hypothyroidism 09/04/2011 Subclinical hypothyroidism 09/04/2011 Thrombocytopenia (HCC) 12/04/2018 Tobacco abuse Type 2 diabetes mellitus without complication (HCC) 08/09/2015 Family History Problem Relation Age of Onset Diabetes Maternal Grandmother Breast Cancer Maternal Aunt Cervical Cancer Paternal Grandmother Ovarian Cancer Paternal Grandmother Heart Disease Maternal Grandfather Diabetes Maternal Grandfather High Cholesterol Mother Ovarian Cancer Unknown Father's side Current Outpatient Medications Medication Sig atorvastatin (LIPITOR) 80 MG Oral Tab Take 1 Tab by mouth DAILY. Blood Glucose Monitor Software Does not apply Device 1 Device by Does not apply route TWICE DAILY. Brand: Freestyle Lite, Dx: E11.65 Cholecalciferol (VITAMIN D-3) 1000 units Oral Cap Take 2,000 Units by mouth DAILY. diphenhydrAMINE (BENADRYL) 25 MG Oral Tab Take 75 mg by mouth EVERY SIX HOURS NEEDED. ergocalciferol (DRISDOL, CALCIFEROL, VITAMIN D) 73910 units Oral Cap Take 1 Cap by mouth EVERY 7 DAYS. gabapentin (NEURONTIN) 400 MG Oral Cap 400 mg THREE TIMES DAILY. Glucose Blood (FREESTYLE LITE) In Vitro Strip 1 Strip by In Vitro route THREE TIMES DAILY. Dx: E11.65 hydrochlorothiazide (HCTZ, ORETIC) 12.5 MG Oral Cap Take 1 Cap by mouth DAILY. hydroxychloroquine (PLAQUENIL) 200 MG Oral Tab Take 400 mg by mouth DAILY. Insulin Glargine 100 UNIT/ML Subcutaneous Solution Pen-injector Inject 40 Units beneath the skin EVERY EVENING. Insulin Pen Needle 32G X 6 MM Does not apply Misc Inject 1 Each beneath the skin DAILY. Diabetes Mellitus Injects once daily. Lancets Does not apply Misc 1 Units by Does not apply route THREE TIMES DAILY. Dx: E11.65, Brand:Free-style loratadine (CLARITIN,ALAVERT) 10 MG Oral Tab Take 10 mg by mouth DAILY. LORazepam (ATIVAN) 0.5 MG Oral Tab Take 1 Tab by mouth EVERY FOUR HOURS NEEDED (anxiety).Max Daily Amount: 3 mg. LORazepam (ATIVAN) 2 MG Oral Tab Take 1 Tab by mouth EVERY BEDTIME. Max Daily Amount: 2 mg. metFORMIN HCL 1000 MG Oral Tab Take 1 Tab by mouth TWICE DAILY. morphine 15 MG Oral Tab Take 7.5 mg by mouth THREE TIMES DAILY. Honor & Syringes Does not apply Misc by Does not apply route. nicotine (NICORETTE) 2 MG Mouth/Throat Gum Place 1 Each between lower cheek and gum NEEDED(Tobacco cessation). MDD 20 pieces ondansetron (ZOFRAN) 4 MG Oral Tab Take 4 mg by mouth EVERY EIGHT HOURS NEEDED (nausea / vomitting). OXYcodone (OXYDOSE, OXYFAST, ROXICODONE) 100 MG/5ML Oral Conc TAKE 1/4 MILLILITER UNDER TONGUE EVERY 6 TO 8 HOURS DIRECTED, MAXIMUM OF 1 MILLILITER DAILY Tizanidine 2 MG Oral Tab Take 2 mg by mouth THREE TIMES DAILY. venlafaxine (EFFEXOR XR) 150 MG Oral CAPSULE SR 24 HR Take 2 Caps by mouth DAILY. Zinc 100 MG Oral Tab Take 1 Tab by mouth DAILY. No current facility-administered medications for this visit. Allergies Allergen Reactions Ceftin [Cefuroxime] Hives Tylenol Other Liver problems Aspirin GI Reaction GI upset Augmentin GI Reaction Nausea Bactrim Hives Garlic Other Throat swelling Ortho Tri-Cyclen, Other Emotional and angry Social History Socioeconomic History Marital status: Single Spouse name: Not on file Number of children: Not on file Years of education: Not on file Highest education level: Not on file Occupational History Not on file Social Needs Financial resource strain: Not on file Food insecurity: Worry: Not on file Inability: Not on file Transportation needs: Medical: Not on file Non-medical: Not on file Tobacco Use Smoking status: Current Every Day Smoker Packs/day: 0.25 Years: 17.00 Pack years: 4.25 Types: Cigarettes Smokeless tobacco: Never Used Substance and Sexual Activity Alcohol use: Yes Alcohol/week: 1.0 standard drinks Types: 1 Shots of liquor per week Comment: very rarely Drug use: No Sexual activity: Not Currently Partners: Male Comment: depo-Provera Lifestyle Physical activity: Days per week: Not on file Minutes per session: Not on file Stress: Not on file Relationships Social connections: Talks on phone: Not on file Gets together: Not on file Attends pentecostalism service: Not on file Active member of club or organization: Not on file Attends meetings of clubs or organizations: Not on file Relationship status: Not on file Intimate partner violence: Fear of current or ex partner: Not on file Emotionally abused: Not on file Physically abused: Not on file Forced sexual activity: Not on file Other Topics Concern Not on file Social History Narrative Single Social History - Highest education: GED / CECIL enrolled - Occupation: not working due to being sick too often , can't hold down a job. - Household Composition: - Pets: 1 dog and 1 cat REVIEW OF SYSTEMS: Review of Systems Constitutional: Positive for chills and malaise/fatigue. Negative for diaphoresis, fever and weight loss. 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 HENT: Positive for congestion and ear pain (R ). Eyes: Negative for blurred vision. Respiratory: Positive for cough and sputum production (brown). Negative for hemoptysis. Cardiovascular: Negative for chest pain. Gastrointestinal: Negative for abdominal pain and heartburn. Genitourinary: Negative for dysuria. Musculoskeletal: Positive for back pain and joint pain. Negative for falls. Skin: Negative for rash. Neurological: Negative for dizziness, seizures and loss of consciousness. Endo/Heme/Allergies: Negative for polydipsia. Psychiatric/Behavioral: Positive for depression. Negative for hallucinations, memory loss, substanceabuse and suicidal ideas. The patient is nervous/anxious. The patient does not have insomnia. Objective PHYSICAL EXAM: VITALS: BP 112/90 | Pulse 90 | Ht 5' 5" (1.651 m) | Wt 342 lb (155.1 kg) | BMI 56.91 kg/m Body mass index is 56.91 kg/m. Physical Exam Alert, oriented, in no acute distress. Vitals as above. HEENT: Normocephalic, atraumatic. PHIL, EOMI. Mouth and ears unremarkable. Neck: No palpable lymphadenopathy in the submandibular, submental, anterior cervical, posterior cervical, or occipital chains, nor in the supraclavicular spaces. No JVD, thyromegaly. LUNGS: clear. HEART: Regular rate and rhythm. ABDOMEN: positive bowel sounds, soft, nontender, no hepatosplenomegaly, masses or bruits. EXTREMITIES: no cyanosis, clubbing, or edema. MSE: Mood not sad, affect not flat. No suicidal or homicidal ideation. No abnormality in thought process or thought content. Insight and judgement good. Well kempt. ASSESSMENT / IMPRESSION: ICD-9-CM ICD-10-CM 1. Localized edematry Lasix 782.3 R60.0 ECHOCARDIOGRAM TTE 2. Type 2 diabetes mellitus with diabetic polyneuropathy, with long-term current use of insulin (HCC)suboptimally controlled. Increase insulin to 44 units 250.60 E11.42 357.2 Z79.4 V58.67 3. Portal hypertensive gastropathy (HCC)keep working on weight loss and diabetes control 572.3K76.6 537.89 K31.89 4. Depression, unspecified depression typecontinue Effexor 311 F32.9 5. Anxiety statecontinue alprazolam 300.00 F41.1 6. Calculus of kidneysee nephrology 592.0 N20.0 Patient Instructions Continue same medicines except make the following changes: 1) increase your insulin to 44 units. 2) stop hydrochlorothiazide and use furosemide 40 mg a day, for leg swelling 3) take antibiotic azithromycin 500 mg a day for 7 days, to treat pain behind the eyes and in the right ear. If it is not helping, we may need to do other tests. Please keep appointment with your counselor so that you can then be referred to psychiatric nurse practitioner who can help with prescribing your psychiatric medicines. Make another appointment with nephrology in [place] [phone], to have your kidney stones evaluated. I will continue to prescribe your lorazepam and venlafaxine until your psychiatric nurse practitioner appointment has occurred Keep appointments for lab work and then with Dr. Valdes, in August A total of 45 minutes was spent adressing the patient's condition and plan of care. Author: George Valdes MD 07/16/2019 11:23 documented in this encounter Plan of Treatment Date Type Specialty Care Team Description 07/29/2019 Orders Only Cardiology 08/25/2019 Office Visit Neurology Roman Dumont CRNP [address] [address] [phone] 09/07/2019 Lab Internal Medicine 09/14/2019 Office Visit Internal Medicine George Valdes MD [address] [place] [id number] Name Type Priority Associated Diagnoses Order Schedule ECHOCARDIOGRAM TTE CV Lab Routine Localized edema Expected: 07/16/2019, Expires: 08/19/2020 Health Maintenance Due Date Last Done Comments Diabetic Eye Exam 1985 PNEUMOCOCCAL 0-64 YRS (1 of 1989 1 - PPSV23) PAP SMEAR 08/04/2017 08/04/2014, 02/02/2014, 06/01/2013, Additional history exists INFLUENZA VACCINE (#1) 2019 07/04/2018, 10/09/2017, 08/16/2015 HEMOGLOBIN A1C 09/03/2019 06/03/2019, 02/12/2019, 09/24/2018, Additional history exists EGD (ESOPHAGODUODENOSCOPY) 02/27/2020 02/26/2018, 02/26/2018, 06/06/2016 (Postponed) FOOT EXAM 04/14/2020 04/14/2019, 04/14/2019 URINE MICROALBUMIN 06/03/2020 06/03/2019, 02/18/2018, 01/11/2017, Additional history exists DEPRESSION SCREENING 06/10/2020 06/10/2019, 06/10/2019 COLONOSCOPY SCREENING 06/06/2021 06/06/2016 (Postponed), 05/09/2015, 05/09/2015 HPV IMMUNIZATION SERIES Aged Out No longer eligible based on patient's age to complete this topic MENINGOCOCCAL VACCINE IMM Aged Out No longer eligible based on patient's age to complete this topic documented as of this encounter Goals Goal Patient Goal Associated Recent Patient-Stated? Author Type Problems Progress Depression Depression 19 rah Arrington (PHQ-9) (06/10/2019 Jesi, total score < 5 11:08 AM EDT) ASSISTANT WOMEN'S ROWING COACH Note: This is an individualized treatment (depression) goal for Vy Murguia: Displayed above is your goal for a depression screening (PHQ-9) score that would indicate good control of your depression. Lifestyle < 7.0 Diabetes 10.2 (06/03/2019 9:23 AM EDT) Jesi Arrington, SOLA Note: Diabetes Care Plan According to current 2014 ADA guidelines the patient A1C goal is less than 7. The patient's last A1C was Lab Results Component Value Date GLYCOHEMOGLOBIN A1C 8.4 (H) 03/16/2016 The patient is:above goal . As your provider, it is important that I advise you regarding: your current medications and help you with any challenges you may face taking your medications as directed (ex. instructions, cost, side effects, and interactions). Important lifestyle changes:exercise, diet, glucose monitoring, smoking cessation and medication compliance your clinical goals and how you can achieve success:weight reduction, exercise plan, diet management, glucose monitoring and smoking cessation medication management: adjusted medications as appropriate patient education/self-management tools provided: Yes To successfully manage my Diabetes I will: have lab work every six months if my previous A1c was 7 or less. If my results were greater than 7, I will have lab work every three months. My goal is to control my diabetes by keeping A1c below 7.0 take medications every day as prescribed by my healthcare provider and if unable to take them I will discuss with my provider. exercise/walk 30 minutes 5 day(s) per week. If I experience chest pain, chest tightness, or shortness of breath, I will seek medical attention immediately. check feet daily. If sores or irritation are noticed, will seek medical attention. follow a low carbohydrate and low fat diet. My goal is an LDL (bad cholesterol) number less than 100 when I have my routine lab work. check blood sugar as instructed and will call my healthcare provider if the results are consistently below 70 or above 300. I will monitor for symptoms of low blood sugar (feeling faint, dizzy, lig htheaded, jittery, sweaty, or hungry), if symptoms are noticed, I will eat or drink something (glucose tabs, orange juice, candy) to help raise sugar. record my blood sugar results (including dextrose sticks). [facility] is safe and secure way for you to do this in your medical record online. try to obtain an ideal body weight. My recent weight was . My weight loss goal for my next office visit is 5#. to prevent kidney problems common to people with diabetes I will complete a yearly Microalbumin to check for protein in urine. I will talk with my healthcare provider about medications to prevent diabetic renal disease. to prevent diabetic retinopathy I will see an eye doctor yearly. A yearly dilated eye exam helps prevent blindness. if currently smoking, will discuss how to quit smoking with my healthcare provider and work towards quitting. Glycohemoglobin A1c < 7.0 Diabetes 10.2 (06/03/2019 9:23 No Jesi Paul, OSCAR EDT) ASSISTANT WOM[employer]OWING [employer] Note: This is an individualized treatment (diabetes control, HgbA1C) goal for Vy Murguia: Displayed above is your progress towards your HgbA1C goal. Your goal is shown above (on the left); your most recent HgbA1C is shown on the right. Note that lower numbers are better. Weight loss vs. 18 mo Lifestyle 0 (07/16/2019 10:46 AM Jesi Arrington FNP max (lbs) >= 10 EDT) Note: This is an individualized lifestyle goal for Vy Murguia: Your body mass index (BMI) is more than 30. You should lose weight. A reasonable starting goal is to lose 10 pounds. Displayed above is how many pounds you have lost thus far towards your 10 pound weight loss goal. Keep a regular sleep schedule Lifestyle No Jesi Paul FNP Note: This is an individualized lifestyle goal for Vy Murguia: Please maintain a regular sleep schedule. This may help with some symptoms of depression. Keep immunizations current Lifestyle No Jesi Paul FNP Note: This is an individualized lifestyle goal for Vy Murguia: Please be sure to keep up-to-date on recommended immunizations. For example, this would include a yearly influenza vaccine. Immunization status can be seen by looking at the Health Maintenance sections of your [facility], Plan of Care, and any After Visit Summaries. Take all prescribed medications as Self-management No Jesi Paul FNP directed Note: This is an individualized self-management goal for Vy Murguia: Please take all prescribed medications as directed. 1. Do not skip doses. If you cannot afford your medications, talk with your doctor. 2. Use a pill reminder system such as a pill box if needed. Your pharmacist can help you with this. 3. Contact your Pharmacy 5 days before your medication runs out. If you cannot take your medications for any reasons, talk with your doctor. 4. Please bring all of your medication bottles and inhalers (or a list of all your medications/inhalers) with you to every visit. Potential barriers to meeting all of your care plan goals will continue to be addressed on an ongoing basis. documented as of this encounter Results Not on filedocumented in this encounter Visit Diagnoses Diagnosis Localized edema - Primary Edema Type 2 diabetes mellitus with diabetic polyneuropathy, with long-term current use of insulin (HCC) Portal hypertensive gastropathy (HCC) Other specified disorder of stomach and duodenum Depression, unspecified depression type Anxiety state Anxiety state, unspecified Calculus of kidney documented in this encounter Guarantor Name Account Type Relation to Date of Phone Billing Patient Address Vy Murguia Personal/Family 1985 [address] (Home) [facility] [phone] [place], [place] (Work) [id number] documented as of this encounter Advance Directives Code Status Date Activated Date Inactivated Comments Full Code 03/25/2018 9:57 AM 03/25/2018 2:36 PM Does patient have decision making capacity? Yes
--- OUTSIDE RECORDS SUMMARY | 2019-08-04 00:03 | XMS REPORT | Continuity of Care Document ---
:1985 External Reference #:[id number] Author Name John Huffman DO MPH Address [address] [place] [address], [address] [place] [address] Care Team Providers Name Role Phone George Valdes M.D. - Family Medicine Care Team Information Lath Tier [phone] Problems Description No Information Available Social History Type Date Description Comments Sex Unknown ETOH Use Denies alcohol use Tobacco Use Start: Unknown Patient is a current smoker, smokes every day Recreational Drug Use Denies Drug Use Smoking Status Reviewed: 07/03/19 Patient is a current smoker, smokes every day Allergies, Adverse Reactions, Alerts Active Allergies Reaction Severity Comments Date Tylenol due to LFT 07/07/2018 Aspirin 07/07/2018 Augmentin 07/07/2018 Bactrim 07/07/2018 Garlic Preparation 07/07/2018 Ethinyl Estradiol 07/07/2018 Ceftin 07/07/2018 Medications Active Medications SIG Qnty Indications Ordering Date Provider Gabapentin si by mouth 90caps John Huffman, 04/01/2019 400mg every 8 as directed DO, MPH Capsules chronic pain Oxycodone HCL si/4 30ml John Huffman, 11/05/2018 milliliters sl by DO, MPH 100mg/5ML mouth every 6 to 8 Concentrate hours as directed chronic pain patient Morphine Sulfate si/2 by mouth 45tabs John Huffman, 07/07/2018 15mg every 8 hours as DO, MPH Tablets directed chronic pain patient Metformin HCL 1 by mouth twice a Unknown 1000mg day Tablets Propranolol HCL 1 by mouth twice Unknown 10mg daily Tablets Venlafaxine HCL ER 2 by mouth once Unknown daily 150mg Tablets ER 24HR Ativan si by mouth Unknown 0.5mg Tablets twice daily prn Lipitor Unknown 40mg Tablets Plaquenil 2 by mouth every Unknown 200mg day Tablets Tizanidine HCL si by at bedtime Unknown 2mg Tablets Ativan sig: at bedtime Unknown 2mg Tablets Immunizations Description No Information Available Vital Signs Date Vital Result Comment 07/03/2019 11:30am BP Systolic 128 mmHg BP Diastolic 86 mmHg Heart Rate 88 /min Respiratory Rate 20 /min Height 65 inches 5'5" Weight 342.00 lb Pain Level 8 Pain at this time. Pain Level With Medicine 7 on average with meds Pain Level Without Medicine 9 without meds BMI (Body Mass Index) 56.9 kg/m2 06/03/2019 11:13am BP Systolic 122 mmHg BP Diastolic 74 mmHg Heart Rate 78 /min Respiratory Rate 20 /min Height 65 inches 5'5" Weight 378.00 lb Pain Level 7 Pain at this time. Pain Level With Medicine 7 on average with meds Pain Level Without Medicine 9 without meds BMI (Body Mass Index) 62.9 kg/m2 Results Description No Information Available Procedures Date Code Description Status 05/09/2019 56407 Omt 3-4 Body Regions Completed 05/09/201945299 Arthrocentesis/Aspiration/Inj Of Major Joint Or Bursa W/ Completed Ultra 05/09/2019 Arthrocentesis/Aspiration/Inj Of Major Joint Or Bursa W/ Completed Ultra 05/04/2019 68314 Therapeutic, Prophylactic Or Diagnostic Injection Subq/Im Completed 03/02/2019 79877 Omt 1-2 Body Regions Completed 03/02/2019 05473 Therapeutic, Prophylactic Or Diagnostic Injection Subq/Im Completed Medical Devices Description No Information Available Encounters Type Date Location Provider Dx Diagnosis Office Visit 06/03/2019 Main Office as Of John Huffman DO, G89.29 Other chronic pain 11:30a 12/19/13 MPH M54.2 Cervicalgia M99.01 Segmental and somatic dysfunction of cervical region M54.6 Pain in thoracic spine M99.02 Segmental and somatic dysfunction of thoracic region M54.5 Low back pain M99.03 Segmental and somatic dysfunction of lumbar region M54.17 Radiculopathy, lumbosacral region 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 Office Visit 05/09/2019 11:15a Main Office as John Huffman G89.29 Other chronic Of 12/19/13 DO, MPH pain M54.2 Cervicalgia M99.01 Segmental and somatic dysfunction of cervical region M54.6 Pain in thoracic spine M99.02 Segmental and somatic dysfunction of thoracic region M54.5 Low back pain M99.03 Segmental and somatic dysfunction of lumbar region M53.3 Sacrococcygeal disorders, not elsewhere classified Office Visit 05/04/2019 11:00a Main Office as John Huffman G89.29 Other chronic Of 12/19/13 DO, MPH pain M54.2 Cervicalgia M54.5 Low back pain M54.17 Radiculopathy, lumbosacral region R53.83 Other fatigue Z79.891 half-way (current) use of opiate analgesic Office Visit 04/01/2019 2:15p Main Office as John Huffman G89.29 Other chronic Of 12/19/13 DO, MPH pain M54.2 Cervicalgia M54.5 Low back pain M54.17 Radiculopathy, lumbosacral region Z79.891 half-way (current) use of opiate analgesic Office Visit 03/02/2019 2:00p Main Office as John Huffman G89.29 Other chronic Of 12/19/13 DO, MPH pain M54.2 Cervicalgia M99.01 Segmental and somatic dysfunction of cervical region M54.5 Low back pain 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 R53.83 Other fatigue Office Visit 01/28/2019 11:30a Main Office as John Huffman G89.29 Other chronic Of 12/19/13 DO, MPH pain M54.17 Radiculopathy, lumbosacral region M54.5 Low back pain M79.18 Myalgia, other site Z79.891 half-way (current) use of opiate analgesic Office Visit 01/09/2019 9:30a Main Office as John Huffman G89.29 Other chronic Of 12/19/13 DO, MPH pain M54.17 Radiculopathy, lumbosacral region M54.5 Low back pain 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 Assessments Date Code Description Provider 07/03/2019 G89.29 Other chronic pain Huffman, John, DO, MPH 07/03/2019 M54.5 Low back pain Huffman, John, DO, MPH 07/03/2019 M99.03 Segmental and somatic dysfunction of lumbar Huffman, John, DO, MPH region 07/03/2019 M54.6 Pain in thoracic spine Huffman, John, DO, MPH 07/03/2019 M99.02 Segmental and somatic dysfunction of Huffman, John, DO, MPH thoracic region 07/03/2019 M54.2 Cervicalgia Huffman, John, DO, MPH 07/03/2019 M99.01 Segmental and somatic dysfunction of Huffman, John, DO, MPH cervical region 07/03/2019 Z79.891 half-way (current) use of opiate analgesic Huffman, John , DO, MPH 06/03/2019 G89.29 Other chronic pain Huffman, John, DO, MPH 06/03/2019 M54.2 Cervicalgia Huffman, John, DO, MPH 06/03/2019 M99.01 Segmental and somatic dysfunction of Huffman, John, DO, MPH cervical region 06/03/2019 M54.6 Pain in thoracic spine Huffman, John, DO, MPH 06/03/2019 M99.02 Segmental and somatic dysfunction of Huffman, John, DO, MPH thoracic region 06/03/2019 M54.5 Low back pain Huffman, John, DO, MPH 06/03/2019 M99.03 Segmental and somatic dysfunction of lumbar Huffman, John, DO, MPH region 06/03/2019 M54.17 Radiculopathy, lumbosacral region Huffman, John, DO, MPH 06/03/2019 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 Huffman, John , DO, MPH 05/09/2019 G89.29 Other chronic pain Huffman, John, DO, MPH 05/09/2019 M54.2 Cervicalgia Huffman, John, DO, MPH 05/09/2019 M99.01 Segmental and somatic dysfunction of Huffman, John, DO, MPH cervical region 05/09/2019 M54.6 Pain in thoracic spine Huffman, John, DO, MPH 05/09/2019 M99.02 Segmental and somatic dysfunction of Huffman, John, DO, MPH thoracic region 05/09/2019 M54.5 Low back pain Huffman, John, DO, MPH 05/09/2019 M99.03 Segmental and somatic dysfunction of lumbar Huffman, John, DO, MPH region 05/09/2019 M53.3 Sacrococcygeal disorders, not elsewhere Huffman, John, DO, MPH classified 05/04/2019 G89.29 Other chronic pain Huffman, John, DO, MPH 05/04/2019 M54.2 Cervicalgia Huffman, John, DO, MPH 05/04/2019 M54.5 Low back pain Huffman, John, DO, MPH 05/04/2019 M54.17 Radiculopathy, lumbosacral region Huffman, John, DO, MPH 05/04/2019 R53.83 Other fatigue Huffman, John, DO, MPH 05/04/2019 Z79.891 half-way (current) use of opiate analgesic Huffman, John , DO, MPH 04/01/2019 G89.29 Other chronic pain Huffman, John, DO, MPH 04/01/2019 M54.2 Cervicalgia Huffman, John, DO, MPH 04/01/2019 M54.5 Low back pain Huffman, John, DO, MPH 04/01/2019 M54.17 Radiculopathy, lumbosacral region Huffman, John, DO, MPH 04/01/2019 Z79.891 half-way (current) use of opiate analgesic Huffman, John , DO, MPH 03/02/2019 G89.29 Other chronic pain Huffman, John, DO, MPH 03/02/2019 M54.2 Cervicalgia Huffman, John, DO, MPH 03/02/2019 M99.01 Segmental and somatic dysfunction of Huffman, John, DO, MPH cervical region 03/02/2019 M54.5 Low back pain Huffman, John, DO, MPH 03/02/2019 Z79.891 half-way (current) use of opiate analgesic HuffmanJohn melchor DO, MPH 03/02/2019 R53.83 Other fatigue HuffmanJohn melchor DO, MPH 01/28/2019 G89.29 Other chronic pain HuffmanJohn melchor DO, MPH 01/28/2019 M54.17 Radiculopathy, lumbosacral region HuffmanJohn melchor DO, MPH 01/28/2019 M54.5 Low back pain HuffmanJohn melchor DO, MPH 01/28/2019 M79.18 Myalgia, other site HuffmanÁngel landisph DO, MPH 01/28/2019 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 Symptoms and complaints discussed and reviewed today. No significant changes in physical findings. Continue current medical pain management.M54.5 Low back painComments:Chronic. Symptoms and complaints discussed and reviewed today.No changes in physical findings. Patient is stable and comfortable when current medical therapy is rendered.M99.03 Segmental and somatic dysfunction of lumbar regionComments:Chronic. Symptoms and complaints discussed and reviewed today. Lumbar somatic dysfunctions noted warranting OMT. Continue current medical pain management and OMT. [id number]. OMT performed after evaluation. HVLA.M54.6 Pain in thoracic spineComments:Chronic.Symptoms and complaints discussed and reviewed today. No significant changes in physical findings. Continue current medical pain management.M99.02 Segmental and somatic dysfunction of thoracic regionComments:Chronic. Symptoms and complaints discussed and reviewed today. Notable somatic dysfunctions noted warranting OMT. Continue current medical pain management and OMT. [id number]. OMT performed after evaluation. HVLA.M54.2 CervicalgiaComments:Chronic. Symptoms and complaints discussed and reviewed today. No significant changes in physical findings. Continue current medical pain management.M99.01 Segmental and somatic dysfunction of cervical regionComments:Chronic. Symptoms and complaints discussed and reviewed today. Somatic dysfunctions noted warrantingOMT. Continue current medical pain management and OMT. [id number]. OMT performed.Z79.891 half-way (current) use of opiate analgesicNew Labs:Urine Drug Screen, Ordered: 07/03/19Comments:Urine drug screen sample taken. Rapid Point of Care Cup was reviewed in office with patient. Will send out UDT Rapid to [facility] lab for confirmation testing. Urine Drug Testing (UDT) was done today to monitor opiate use and to monitor possible use of illicit substances. I will discuss the results at the next appointment from the [facility] lab.The following tests were ordered:6 AM, AMPH, СЕРГЕЙ, JHONATAN, BUP, CARIS, COCM, COT, ETG, FENT, MCSHSG, OPI, OXY, PCP, TAPEN, XTSY, ZOLP. A urine drug test (UDT) was ordered for this patient and collected on site today. Creatinine has been ordered as well for specimen validity, not for kidney function. Preliminary UDT results are not final and should not be used to determine patient care or plan of treatment. Initially a qualitative immunoassay screen will be done. Any inconsistent or positive findings will be further tested with a more comprehensive quantitative confirmation LCMS study. It is part of the treatment process of prescribing controlled substances and is considered standard of care.AllComments:Continue current medical pain management ; injection therapy, osteopathic manipulation, PT / modalities, and consults as needed to manage chronic pain.Non - opioid pain management discussed and optionsdiscussed.Side effects discussed; anticipatory guidance given. Patient clearly understand and agree with all medical treatments and suggestions. All medicines prescribed are adequate and appropriate for this patient's complaint of pain, medical history, physical, and personal goals.Goals of Treatment are to provide adequate and appropriate multidisciplinary medical pain management to increase/ maintain patient's quality of life and functionality while maintaining satisfactory side effect profile andminimizing shelter end-organ damage. Importance of regular nutrition throughout the day discussed.Activity as toleratedContinue with PCP Functional Status Description No Information Available Mental Status Description No Information Available Referrals Description No Information Available
--- OUTSIDE RECORDS SUMMARY | 2019-08-04 00:03 | XMS REPORT | Summary of Care ---
:1985 Author Organization [facility] Address [address] [address] Care Team Providers Name Role Phone George Valdes MD Primary Care Provider Reason for Visit Reason Comments Leg Pain feet and legs swollen and painful past week and hands started swelling last night. also head pain past 4-5 days right side towards back; denies any N/V chest pain or diziness at this time. Encounter Details Date Type Department Care Team Description 07/13/2019 Office Visit [facility]ina, Localized edema ( Primary Dx); Practice [address] ATTENDANT History of low potassium; [address] [place] [address] [place] [address] [phone] Allergies Active Allergy Reactions Severity Noted Date Comments Aspirin GI Reaction 08/17/2008 GI upset Augmentin GI Reaction 08/17/2008 Nausea Bactrim Hives 02/28/2011 Cefuroxime Hives High 12/04/2010 Garlic Other 07/10/2012 Throat swelling Ortho Tri-Cyclen, Other 07/08/2012 Emotional and angry Tylenol Other Medium 03/25/2018 Liver problems documented as of this encounter (statuses as of 07/13/2019) Medications Medication Sig Dispensed Refills Start Date End Date Status diphenhydrAMINE Take 75 mg by 0 Active (BENADRYL) 25 MG Oral mouth EVERY SIX TabIndications: allergy HOURS NEEDED. [place] [employer] Syringes Does by Does not 100 Each 3 02/13/2016 Active not apply Misc apply route. Blood Glucose Monitor 1 Device by Does 1 Device 0 03/19/2018 Active Software Does not apply not apply route Device TWICE DAILY. Brand: Freestyle Lite, Dx: E11.65 hydroxychloroquine Take 400 mg by 0 Active (PLAQUENIL) 200 MG Oral mouth DAILY. Tab metFORMIN HCL 1000 MG Take 1 Tab by 60 Tab 5 12/04/2018 Active Oral TabIndications: mouth TWICE Type 2 diabetes mellitus DAILY. with diabetic mononeuropathy, with long-term current use of insulin ([facility]) morphine 15 MG Oral Tab Take 7.5 mg by 0 Active mouth THREE TIMES DAILY. Tizanidine 2 MG Oral Tab Take 2 mg by 0 Active mouth THREE TIMES DAILY. atorvastatin (LIPITOR) Take 1 Tab by 30 Tab 11 02/26/2019 Active 80 MG Oral Tab mouth DAILY. gabapentin (NEURONTIN) 400 mg THREE 0 04/01/2019 Active 400 MG Oral Cap TIMES DAILY. OXYcodone (OXYDOSE, TAKE 1/4 0 04/01/2019 Active OXYFAST, ROXICODONE) 100 MILLILITER UNDER MG/5ML Oral Conc TONGUE EVERY 6 TO 8 HOURS DIRECTED, MAXIMUM OF 1 MILLILITER DAILY nicotine ([place]) [address] 1 Each 100 Each 5 04/15/2019 Active MG Mouth/Throat Gum between lower cheek and gum NEEDED (Tobacco cessation). MDD 20 pieces Glucose Blood (FREESTYLE 1 Strip by In 100 Strip 1 05/11/2019 Active LITE) In Vitro Vitro route StripIndications: Type 2 THREE TIMES diabetes mellitus with DAILY. Dx: diabetic mononeuropathy, E11.65 with long-term current use of insulin ([facility]) Lancets Does not apply 1 Units by Does 100 Each 1 05/11/2019 Active MiscIndications: Type 2 not apply route diabetes mellitus with THREE TIMES diabetic mononeuropathy, DAILY. Dx: with long-term current E11.65, use of insulin ([facility]) Brand:Free-style ondansetron (ZOFRAN) 4 Take 4 mg by 20 Tab 3 05/11/2019 Active MG Oral TabIndications: mouth EVERY Gastroesophageal reflux EIGHT HOURS disease, esophagitis NEEDED (nausea / presence not specified vomitting). Zinc 100 MG Oral Tab Take 1 Tab by 30 Tab 11 05/19/2019 Active mouth DAILY. loratadine Take 10 mg by 0 Active (CLARITIN,ALAVERT) 10 MG mouth DAILY. Oral Tab ergocalciferol (DRISDOL, Take 1 Cap by 8 Cap 0 06/10/2019 Active CALCIFEROL, VITAMIN D) mouth EVERY 7 32743 units Oral DAYS. CapIndications: Vitamin D deficiency Insulin Glargine 100 Inject 40 Units 6 mL 5 06/10/2019 Active UNIT/ML Subcutaneous beneath the skin Solution Pen-injector EVERY EVENING. Cholecalciferol (VITAMIN Take 2,000 Units 180 Cap 3 06/10/2019 Active D-3) 1000 units Oral Cap by mouth DAILY. LORazepam (ATIVAN) 2 MG Take 1 Tab by 30 Tab 0 06/16/2019 Active Oral Tab mouth EVERY BEDTIME. Max Daily Amount: 2 mg. LORazepam (ATIVAN) 0.5 Take 1 Tab by 50 Tab 0 06/16/2019 Active MG Oral Tab mouth EVERY FOUR HOURS NEEDED (anxiety). Max Daily Amount: 3 mg. venlafaxine (EFFEXOR XR) Take 2 Caps by 42 Cap 0 07/09/2019 Active 150 MG Oral CAPSULE SR mouth DAILY. 24 HR Insulin Pen Needle 32G X Inject 1 Each 100 Each 3 07/09/2019 Active 6 MM Does not apply Misc beneath the skin DAILY. Diabetes Mellitus Injects once daily. documented as of this encounter (statuses as of 07/13/2019) Active Problems Problem Noted Date Gastroparesis 05/19/2019 Portal hypertensive gastropathy 01/04/2019 Thrombocytopenia 12/04/2018 Type 2 diabetes mellitus with diabetic mononeuropathy, with long-term 2017 current use of insulin Liver cirrhosis secondary to AREVALO 03/19/2018 Calculus of kidney 02/17/2018 Overview: Added automatically from request for surgery [id number] Arthralgia of right knee 10/07/2017 Chronic migraine [...] as of this encounter (statuses as of 07/13/2019) Resolved Problems Problem Noted Date Resolved Date History of Morbid Obesity (BMI 40.0 or Higher) 08/17/2008 09/04/2010 Overview: 11/24/2004, BMI: 45.35 documented as of this encounter (statuses as of 07/13/2019) Immunizations Name Administration Dates Next Due DTAP [...] Sign Reading Time Taken Comments Blood Pressure 128/70 07/13/2019 1:03 PM EDT Pulse 96 07/13/2019 1:03 PM EDT Temperature - - Respiratory Rate - - Oxygen Saturation 97% 07/13/2019 1:03 PM EDT Inhaled Oxygen Concentration - - Weight - - Height - - Body Mass Index - - documented in this encounter Patient Instructions Patient InstructionsSarina Ervin FNP - 07/13/2019 1:00 PM EDTElevate legs as much as possible Lab today - if OK will try low dose diuretic documented in this encounter Progress Notes Sarina Ervin FNP - 07/13/2019 1:00 PM EDT PATIENT: Vy Murguia : 1985 DATE OF SERVICE: 07/13/2019 CHIEF COMPLAINT: Chief Complaint Patient presents with Leg Pain feet and legs swollen and painful past week and hands started swelling last night. also head pain past 4-5 days right side towards back; denies any N/V chest pain or diziness at this time. Subjective HISTORY OF PRESENT ILLNESS: Vy Murguia is a 34-y.o. female. HPI Swelling of feet and legs with increased pain since started work 10 days ago, states has burning sensation - is on gabapentin. Labs from May reviewed - K+ slightly low, A1c >10 Past Medical History: Diagnosis Date Abnormal EKG [...] HOURS NEEDED. ergocalciferol (DRISDOL, CALCIFEROL, VITAMIN D) 08208 units Oral Cap Take 1 Cap by mouth EVERY 7 DAYS. gabapentin (NEURONTIN) 400 MG Oral Cap 400 mg THREE TIMES DAILY. Glucose Blood (FREESTYLE LITE) In Vitro Strip 1 Strip by In Vitro route THREE TIMES DAILY. Dx: E11.65 hydroxychloroquine (PLAQUENIL) 200 MG Oral Tab Take [...] 7.5 mg by mouth THREE TIMES DAILY. [place] [employer] Syringes Does not apply Misc by [...] file Gets together: Not on file Attends latter day service: Not on file Active member of [...] SYSTEMS: Review of Systems Constitutional: Positive for malaise/fatigue. Negative for chills and fever. Eyes: Negative for blurred vision and double vision. Respiratory: Negative for shortness of breath. Cardiovascular: Positive for leg swelling. Negative for chest pain. Musculoskeletal: Positive for myalgias. Negative for falls. Neurological: Negative for dizziness and headaches. Objective PHYSICAL EXAM: VITALS: BP 128/70 (BP Location: Left arm, Patient Position: Sitting) | Pulse 96 | SpO2 97% Thereis no height or weight on file to calculate BMI. Physical Exam Constitutional: She is oriented to person, place, and time. Vital signs are normal. She appears well-developed and well-nourished. No wt today - pt refused HENT: Head: Normocephalic and atraumatic. Eyes: Pupils are equal, round, and reactive to light. Neck: No JVD present. Cardiovascular: Normal rate and regular rhythm. Pulses: Dorsalis pedis pulses are 2+ on the right side, and 2+ on the left side. Posterior tibial pulses are 2+ on the right side, and 2+ on the left side. Non pitting edema LE - R>L Pulmonary/Chest: Effort normal and breath sounds normal. Feet: Right Foot: Skin Integrity: Negative for erythema or warmth. Left Foot: Skin Integrity: Negative for erythema or warmth. Neurological: She is alert and oriented to person, place, and time. No cranial nerve deficit or sensory deficit. Gait normal. Skin: Skin is warm and dry. Capillary refill takes 2 to 3 seconds. No erythema. Vitals reviewed. ASSESSMENT / IMPRESSION: ICD-9-CM ICD-10-CM 1. Localized edema 782.3 R60.0 COMPREHENSIVE METABOLIC PANEL 2. History of low potassium V12.29 Z86.39 3. Myalgia 729.1 M79.10 SEDIMENTATION RATE Plan Elevate legs as much as possible Lab today - if OK will try low dose diuretic Continue current medication Author: SOLA Butt 07/13/2019 13:29 documented in this encounter Plan of Treatment Date Type Specialty Care Team Description 08/25/2019 Office Visit Neurology Roman Dumont CRNP [address] [address] [phone] 09/07/2019 Lab Internal Medicine 09/14/2019 Office Visit Internal Medicine George Valdes MD [address] [place] [address] [phone] Name Type Priority Associated Diagnoses Order Schedule COMPREHENSIVE METABOLIC Lab Routine Localized edema Expected: 07/13/2019 PANEL History of low (Approximate), potassium Expires: 01/09/2020 SEDIMENTATION RATE Lab Routine Myalgia Expected: 07/13/2019 (Approximate), Expires: 01/09/2020 Health Maintenance Due Date Last Done Comments [...] Author Type Problems Progress Depression Depression 19 No rah Paul (PHQ-9) (06/10/2019 Jesi, total score < 5 11:08 AM EDT) [address] ATTENDANT Note: This is an individualized treatment (depression) goal for Vy Murguia: Displayed above is your goal for a depression screening (PHQ-9) score that would indicate good control of your depression. Lifestyle < 7.0 Diabetes 10.2 (06/03/2019 9:23 AM EDT) Jesi Arrington, [address] ATTENDANT Note: Diabetes Care Plan According to current [...] my blood sugar results (including dextrose sticks). [employer] is safe and secure way for you [...] Diabetes 10.2 (06/03/2019 9:23 No Jesi Paul, AM EDT) SOLA Note: This is an individualized treatment (diabetes control, HgbA1C) goal for Vy Murguia: Displayed above is your progress towards your HgbA1C goal. Your goal is shown above (on the left); your most recent HgbA1C is shown on the right. Note that lower numbers are better. Weight loss vs. 18 mo Lifestyle 5 (06/10/2019 11:04 AM No Jesi Paul FNP max (lbs) >= 10 EDT) Note: [...] Diagnoses Diagnosis Localized edema - Primary Edema History of low potassium Myalgia Mylagia and myositis, unspecified documented in this encounter Guarantor Name Account Type Relation to Date of Phone Billing Patient Address Vy Murguia Personal/Family 1985 [address] (Home) [facility] [phone] [place], [place] (Work) [address] documented as of this encounter Advance Directives Code Status Date Activated Date Inactivated Comments Full Code 03/25/2018 9:57 AM 03/25/2018 2:36 PM Does patient have decision making capacity? Yes"
--- NOTE | 2019-08-04 02:58 | ED ---
Adult Trauma - HPI Summary HPI Summary: Patient is a 34 y/o F presenting to ED with concerns of possible infection of injury at buttocks area. She states that, around four days ago, she had fallen down four steps and landed on her buttocks. She denies head injury, neck injury , and any other injury. She states that she has had buttock pain since and reports radiation of pain up her back. Patient went to her pain clinic today and states that she was instructed to come to ED for evaluation of possible infection. She states that she had a fever but denies cough. PMHx of thyroid disease, diabetes, and renal disease is noted. On triage, pain is rated 9/10, nothing is noted to aggravate/alleviate Sx. Home medications and allergies are reviewed. - History of Current Complaint Chief Complaint: EDFall Stated Complaint: FALL PAIN/SWELLING PER PT Time Seen by Provider: 08/04/19 02:51 Hx Obtained From: Patient Hx Last Menstrual Period: 08/24/17 Mechanism of Injury: Fall Ambulatory at the Scene: Yes Restraints: None Onset/Duration: Started Days Ago, Still Present Onset of Pain: Days, Prior to Arrival Current Severity: Severe Pain Intensity: 9 Pain Scale Used: 0-10 Numeric Location: Other - buttocks Aggravating Factor(s): Nothing Alleviating Factor(s): Nothing Associated Signs & Symptoms: Positive: Fever, Other: - positive - fall, injury to buttocks; negative - head injury, neck injury. Negative: Cough - Allergy/Home Medications Allergies/Adverse Reactions: Allergies Allergy/AdvReac Type Severity Reaction Status Date / Time amoxicillin Allergy Hives Verified 08/03/19 23:57 baclofen Allergy Hives Verified 08/03/19 23:57 garlic Allergy Hives Verified 08/03/19 23:57 latex Allergy Rash Verified 08/03/19 23:57 sulfamethoxazole Allergy Hives Verified 08/03/19 23:57 [From Bactrim] trimethoprim [From Bactrim] Allergy Hives Verified 08/03/19 23:57 Home Medications: Home Medications Furosemide TAB* [Lasix TAB*] 40 mg PO DAILY 08/04/19 [History Confirmed 08/04/19 ] Gabapentin 400 mg PO TID 08/04/19 [History Confirmed 08/04/19] Hydrochlorothiazide TAB* [Hydrodiuril TAB*] 200 mg PO DAILY 08/04/19 [History Confirmed 08/04/19] Insulin Glargine,Hum.rec.anlog [Basaglar Kwikpen U-100] 44 units SUBCUT QPM [History Confirmed 08/04/19] LORazepam [Lorazepam] 0.5 mg PO Q6HR PRN 08/04/19 [History Confirmed 08/04/19] LORazepam [Lorazepam] 2 mg PO BEDTIME 08/04/19 [History Confirmed 08/04/19] Morphine TAB (NF) 7.5 mg PO TID 08/04/19 [History Confirmed 08/04/19] PMH/Surg Hx/FS Hx/Imm Hx Endocrine/Hematology History: Reports: Hx Diabetes - type 2 dm, Hx Thyroid Disease Cardiovascular History: Denies: Hx Congestive Heart Failure, Hx Hypertension, Hx Pacemaker/ICD History: Reports: Hx Renal Disease Sensory History: Denies: Hx Hearing Aid Psychiatric History: Reports: Hx Panic Disorder - Cancer History Cancer Type, Location and Year: stage 3 kidney disease,ovarian syndrome, psorosis of the liver, portal hypertension, unknown auto immune disease. Hx Chemotherapy: No Hx Radiation Therapy: No - Surgical History Surgery Procedure, Year, and Place: TONSILECTOMY - 1988. FATTY LIPOMAS REMOVED - 2010. ABSCESS REMOVED( TUNNELED AREAS) BACK OF NECK. D &C. kidney stents Infectious Disease History: No Infectious Disease History: Denies: Hx Clostridium Difficile, Hx Hepatitis, Hx Human Immunodeficiency Virus (HIV), Hx of Known/Suspected MRSA, Hx Shingles, Hx Tuberculosis, Hx Known/ Suspected VRE, Hx Known/Suspected VRSA, History Other Infectious Disease, Traveled Outside the [place] in Last 30 Days - Family History Known Family History: Positive: Cardiac Disease, Diabetes, Other - CA breast cervical - Social History Alcohol Use: None Substance Use Type: Reports: None Smoking Status (MU): Light Every Day Tobacco Smoker Amount Used/How Often: 1/4 to 102 ppd Review of Systems Positive: Fever Negative: Cough Musculoskeletal: Other - positive - fall, buttocks pain; negative - head/neck injury All Other Systems Reviewed And Are Negative: Yes Physical Exam - Summary Physical Exam Summary: Appearance: Well-appearing, Well-nourished, lying in bed comfortably Skin: Warm, dry, no obvious rash Eyes: sclera anicteric, no conjunctival pallor ENT: mucous membranes moist, pharynx appears normal Neck: Supple, nontender Respiratory: Clear to auscultation, no signs of respiratory distress Cardiovascular: Normal S1, S2. No murmurs. Normal distal pulses in tibial and radial bilaterally. Abdomen: Soft, nontender, normal active bowel sounds present Musculoskeletal: Bruising of left buttock with large area of palpable hematoma adjacent to it, there is no area of particular tenderness or induration to suggest infection. Strength/ROM Intact Neurological: A&Ox3, awake and alert, mentation is normal, speech is fluent and appropriate Psychiatric: affect is normal, does not appear anxious or depressed Triage Information Reviewed: Yes Vital Signs On Initial Exam: Initial Vitals Temp Pulse Resp BP Pulse Ox 98 F 118 20 133/90 99 08/03/19 23:54 08/03/19 23:54 08/03/19 23:54 08/03/19 23:54 08/03/19 23:54 Vital Signs Reviewed: Yes Diagnostics - Vital Signs Vital Signs Temp Pulse Resp BP Pulse Ox 08/04/19 02:22 98.3 F 112 17 132/86 96 08/03/19 23:54 98 F 118 20 133/90 99 - Laboratory Lab Statement: Any lab studies that have been ordered have been reviewed, and results considered in the medical decision making process. Adult Trauma Course/Dx - Course Course Of Treatment: Patient is a 34 y/o F presenting to ED with concerns of possible infection of injury at buttocks area. She states that, around four days ago, she had fallen down four steps and landed on her buttocks. She denies head injury, neck injury, and any other injury. She states that she has had buttock pain since and reports radiation of pain up her back. Patient went to her pain clinic today and states that she was instructed to come to ED for evaluation of possible infection. She states that she had a fever but denies cough. PMHx of thyroid disease, diabetes, and renal disease is noted. On physical exam, there is bruising of left buttock with large area of palpable hematoma adjacent to it. There is no area of particular tenderness or induration to suggest infection. - Diagnoses Provider Diagnoses: Hematoma, Contusion Discharge ED - Sign-Out/Discharge Documenting (check all that apply): Patient Departure - discharge Patient Received Moderate/Deep Sedation with Procedure: No - Discharge Plan Condition: Stable Disposition: HOME Patient Education Materials: Hematoma (ED) Referrals: Helen Valdes MD [Primary Care Provider] - If Needed - Billing Disposition and Condition Condition: STABLE Disposition: Home - Attestation Statements Document Initiated by Janessa: Yes Documenting Scribe: HELEN AVERY Provider For Whom Janessa is Documenting (Include Credential): JELLY WATTERS MD Scribe Attestation: HELEN William, scribed for JELLY WATTERS MD on 08/08/19 at 0614. Scribe Documentation Reviewed: Yes Provider Attestation: The documentation as recorded by the HELEN mars accurately reflects the service I personally performed and the decisions made by me, JELLY WATTERS MD Status of Scribe Document: Viewed
[2019-08-04 03:22] VITALS: BP 147/91
== END 2019-08-04 03:08 | disposition home or self-care (01) ==
LOC: ED 23:52
DX: S30.0XXA Contusion of lower back and pelvis, initial encounter (principal); R50.9 Fever, unspecified; R60.9 Edema, unspecified; E11.9 Type 2 diabetes mellitus without complications; E03.9 Hypothyroidism, unspecified; E11.22 Type 2 diabetes mellitus with diabetic chronic kidney disease; N18.3 Chronic kidney disease, stage 3 (moderate); F17.210 Nicotine dependence, cigarettes, uncomplicated; W10.9XXA Fall (on) (from) unspecified stairs and steps, initial encounter; Y92.9 Unspecified place or not applicable; Z79.899 Other long term (current) drug therapy; Z88.0 Allergy status to penicillin
CPT/HCPCS: 99282